=== PATIENT | female | born 1960 | race Caucasian/White ===

== ENCOUNTER 2017-07-02 18:32 | Emergency (ER) | payer MEDICARE, OTHER ==
[~2017-07-02] VITALS: Ht 177.8 cm; Wt 75.0 kg
[2017-07-02 19:11] LABS: BASOPHILS % (AUTO) 0.2 % (0.0-2.0); EOSINOPHILS % (AUTO) 1.1 % (1.0-6.0); HEMATOCRIT 38.2 % (36-46); LYMPHOCYTES # (AUTO) 0.9 K/uL (1.0-4.8); LYMPHOCYTES % (AUTO) 17.4 % (22.0-44.0); MEAN CORPUSCULAR HEMOGLOBIN 32.3 pg (26.0-34.0); MEAN CORPUSCULAR HGB CONC 34.2 G/dL (31.0-37.0); MEAN CORPUSCULAR VOLUME 95 fL (80-100); MONOCYTES # (AUTO) 0.5 K/uL (0.1-1.0); MONOCYTES % (AUTO) 10.2 % (2.0-9.0); NEUTROPHILS # (AUTO) 3.5 K/uL (1.8-7.7); NEUTROPHILS % (AUTO) 71.1 % (40.0-70.0); PLATELET COUNT (AUTO) 127 K/uL (150-450); RED BLOOD CELL COUNT(AUTO) 4.03 MIL/uL (4.00-5.20); RED CELL DISTRIBUTION WIDTH 15.6 % (11.5-14.5); WHITE BLOOD COUNT (AUTO) 4.9 K/uL (4.5-11.0)
[2017-07-02] MEDS ORDERED: HALOPERIDOL 5 MG TABLET PO ONE (20:00)
[2017-07-02] MEDS ORDERED: LORazepam 2 MG TABLET PO ONE (20:00)
[2017-07-02 20:36] VITALS: BP 110/80
[2017-07-02 21:01] LABS: ANION GAP 10 mmol/L (8-16); CALCIUM, TOTAL 8.8 mg/dL (8.8-10.5); CARBON DIOXIDE 26 mmol/L (22-29); CHLORIDE 107 mmol/L (98-107); CREATININE 0.59 mg/dL (0.60-1.30); GLOMERULAR FILTR. RATE CALC > 60 mL/min (>60); POTASSIUM 3.6 mmol/L (3.5-5.1); SODIUM SERUM 143 mmol/L (136-145); UREA NITROGEN, BLOOD 5 mg/dL (7-18)
[2017-07-02 21:07] LABS: ALANINE AMINOTRANSFERASE 264 U/L (12-78); ALBUMIN 3.3 g/dL (3.4-5.0); ASPARTATE AMINOTRANSFERASE 175 U/L (15-37); BILIRUBIN,TOTAL 0.7 mg/dL (0.1-1.0)
[2017-07-05] MEDS ORDERED: BUPR150SR PO (16:36)
[2017-07-05] MEDS ORDERED: RISP2 PO (16:36)
[2017-07-05] MEDS ORDERED: CLON2 PO (16:36)
== END 2017-07-02 23:07 | disposition home or self-care (01) ==
LOC: EMS 18:35
DX: F25.9 Schizoaffective disorder, unspecified (principal); F31.9 Bipolar disorder, unspecified; F41.9 Anxiety disorder, unspecified; F17.210 Nicotine dependence, cigarettes, uncomplicated
CPT/HCPCS: 36415; 80053; 85025; 93005; 99285; 99406; G0480

== ENCOUNTER 2017-10-03 00:54 | Inpatient (IN) | payer MEDICARE, OTHER ==
[~2017-10-03] VITALS: Ht 180.3 cm; Wt 68.5 kg
[~2017-10-03 00:54] MED LIST: ALBU8HFA4 IH; BUPR-93 PO; DSS100 PO; OMEP20 PO; RISP2 PO
[2017-10-03 02:36] LABS: BASOPHILS % (AUTO) 0.3 % (0.0-2.0); EOSINOPHILS % (AUTO) 1.1 % (1.0-6.0); HEMATOCRIT 38.6 % (36-46); HEMOGLOBIN 13.1 g/dL (12.0-16.0); LYMPHOCYTES # (AUTO) 0.8 K/uL (1.0-4.8); LYMPHOCYTES % (AUTO) 21.9 % (22.0-44.0); MEAN CORPUSCULAR HEMOGLOBIN 32.1 pg (26.0-34.0); MEAN CORPUSCULAR VOLUME 94 fL (80-100); MONOCYTES # (AUTO) 0.3 K/uL (0.1-1.0); MONOCYTES % (AUTO) 9.5 % (2.0-9.0); NEUTROPHILS # (AUTO) 2.4 K/uL (1.8-7.7); NEUTROPHILS % (AUTO) 67.2 % (40.0-70.0); PLATELET COUNT (AUTO) 159 K/uL (150-450); RED BLOOD CELL COUNT(AUTO) 4.09 MIL/uL (4.00-5.20); RED CELL DISTRIBUTION WIDTH 14.2 % (11.5-14.5); WHITE BLOOD COUNT (AUTO) 3.6 K/uL (4.5-11.0)
[2017-10-03 02:47] LABS: ANION GAP 3 mmol/L (8-16); CARBON DIOXIDE 30 mmol/L (22-29); CHLORIDE 99 mmol/L (98-107); CREATININE 0.48 mg/dL (0.60-1.30); GLOMERULAR FILTR. RATE CALC > 60 mL/min (>60); SODIUM SERUM 132 mmol/L (136-145); UREA NITROGEN, BLOOD 17 mg/dL (7-18)
[2017-10-03 02:52] LABS: INR 1.2 (0.9-1.1); PROTHROMBIN TIME 12.2 SEC (9.4-11.6)
[2017-10-03 02:53] LABS: ALANINE AMINOTRANSFERASE 111 U/L (12-78); ALBUMIN 2.8 g/dL (3.4-5.0); ASPARTATE AMINOTRANSFERASE 82 U/L (15-37); BILIRUBIN,TOTAL 0.4 mg/dL (0.1-1.0); CREATINE KINASE, TOTAL 49 U/L (26-192); TOTAL PROTEIN, SERUM 6.6 g/dL (6.4-8.2)
[2017-10-03 02:59] LABS: B-TYPE NATRIURETIC PEPTIDE 8 pg/mL (0-100)
[2017-10-03] MEDS ORDERED: OxyCODONE HCL/ACETAMINOPHEN 5-325 MG TABLET PO ONE (05:00)
[2017-10-03] MEDS ORDERED: HEPARIN SODIUM 25000 UNITS/D5W 250 ML IV PRN (05:13)
[2017-10-03] MEDS ORDERED: VANCOMYCIN HCL 1 GM/D5% WATER 200 ML IV ONE ×2 (05:15→13:15)
[2017-10-03] MEDS ORDERED: CEFEPIME HCL 1 GM/VIAL IM ONE (05:15)
[2017-10-03] MEDS ORDERED: HEPARIN SODIUM,PORCINE 5,000 UNITS/ML VIAL IVP PRN ×5 (05:15→23:00)
[2017-10-03] MEDS ORDERED: HEPARIN SODIUM,PORCINE 5,000 UNITS/ML VIAL IVP ONE ×3 (05:15→23:00)
[2017-10-03 05:18] LABS: APPEARANCE,URINE CLOUDY (CLEAR); GLUCOSE, URINE (UA) NEGATIVE (NEGATIVE); KETONES,URINE NEGATIVE (NEGATIVE); LEUKOCYTE ESTERASE ,URINE MODERATE (NEGATIVE); OCCULT BLOOD,URINE TRACE (NEGATIVE); PH,URINE 6.5 (5.0-8.0); PROTEIN,URINE NEGATIVE (NEGATIVE)
[2017-10-03 05:24] LABS: ADD UA MICROSCOPIC YES
[2017-10-03] MEDS ORDERED: ACETAMINOPHEN 325 MG TABLET PO PRN ×2 (05:30→05:45)
[2017-10-03] MEDS ORDERED: ONDANSETRON HCL 4 MG/2 ML VIAL IVP PRN ×2 (05:30→05:45)
[2017-10-03] MEDS ORDERED: 0.9% SODIUM CHLORIDE 10 ML SYRINGE IVP PRN (05:30)
[2017-10-03 05:37] LABS: SQUAMOUS EPITHELIAL CELL,UR Many /LPF (None Seen)
[2017-10-03] MEDS ORDERED: BISACODYL 10 MG RECTAL RECTAL SUPPOSITORY PR PRN (05:45)
[2017-10-03] MEDS ORDERED: MORPHINE SULFATE 4 MG/ML SYRINGE IVP PRN (05:45)
[2017-10-03] MEDS ORDERED: CEFEPIME HCL 1 GM in DEXTROSE 5%-WATER 50 ML IV ONE ×4 (05:45)
[2017-10-03] MEDS ORDERED: IPRATROPIUM BROMIDE 0.5 MG/2.5 ML NEB SOLUTION NEB PRN (05:45)
[2017-10-03] MEDS ORDERED: ZOLPIDEM TARTRATE 5 MG TABLET PO PRN (05:45)
[2017-10-03] MEDS ORDERED: MAGNESIUM HYDROXIDE SUSPENSION 30 ML UDCUP PO PRN (05:45)
[2017-10-03] MEDS ORDERED: ALBUTEROL SULFATE 2.5 MG/0.5 ML NEB SOLUTION NEB PRN (05:45)
[2017-10-03 06:43] VITALS: BP 96/65
[2017-10-03 07:07] VITALS: BP 100/62
[2017-10-03] MEDS: BuPROPion HCL XL 150 MG ER TABLET PO SCH ×2 (08:56→13:05)
[2017-10-03] MEDS: RisperiDONE 2 MG TABLET PO SCH ×2 (08:56→20:04)
[2017-10-03] MEDS: OxyCODONE HCL/ACETAMINOPHEN 5-325 MG TABLET PO PRN ×4 (09:00→21:03)
[2017-10-03 11:26] VITALS: BP 96/58
[2017-10-03] MEDS ORDERED: VANCOMYCIN HCL 500 MG in DEXTROSE 5%-WATER 100 ML IV ONE (11:45)
[2017-10-03] MEDS: DICLOFENAC SODIUM 1% 100 GM GEL [2GM] TP SCH ×2 (13:05→20:06)
[2017-10-03 15:35] VITALS: BP 96/69
[2017-10-03 17:16] VITALS: BP 105/66
[2017-10-03 19:30] VITALS: BP 101/70
[2017-10-03] MEDS ORDERED: VANCOMYCIN HCL 1.5 GM in DEXTROSE 5%-WATER 250 ML IV ONE (22:00)
[2017-10-03 23:41] LABS: BASOPHILS # (AUTO) 0.02 K/uL (0.00-0.20); BASOPHILS % (AUTO) 0.7 % (0.0-2.0); EOSINOPHILS # (AUTO) 0.04 K/uL (0.00-0.70); EOSINOPHILS % (AUTO) 1.35 % (1.0-6.0); HEMATOCRIT 36.8 % (36-46); HEMOGLOBIN 12.3 g/dL (12.0-16.0); LYMPHOCYTES # (AUTO) 0.9 K/uL (1.0-4.8); LYMPHOCYTES % (AUTO) 29.5 % (22.0-44.0); MEAN CORPUSCULAR HEMOGLOBIN 32.5 pg (26.0-34.0); MEAN CORPUSCULAR HGB CONC 33.6 G/dL (31.0-37.0); MEAN CORPUSCULAR VOLUME 97 fL (80-100); MONOCYTES # (AUTO) 0.2 K/uL (0.1-1.0); MONOCYTES % (AUTO) 8.1 % (2.0-9.0); NEUTROPHILS # (AUTO) 1.8 K/uL (1.8-7.7); NEUTROPHILS % (AUTO) 60.3 % (40.0-70.0); PLATELET COUNT (AUTO) 124 K/uL (150-450); RED CELL DISTRIBUTION WIDTH 14.4 % (11.5-14.5); WHITE BLOOD COUNT (AUTO) 2.9 K/uL (4.5-11.0)
[2017-10-03 23:48] LABS: INR 1.2 (0.9-1.1); PROTHROMBIN TIME 12.2 SEC (9.4-11.6)
[2017-10-04] VITALS (7 sets, daily range): BP systolic 96–127; BP diastolic 48–87
[2017-10-04] MEDS: OxyCODONE HCL/ACETAMINOPHEN 5-325 MG TABLET PO PRN ×7 (01:09→21:39)
[2017-10-04] MEDS: HEPARIN SODIUM 25000 UNITS/D5W 250 ML IV PRN ×3 (01:52→11:07)
[2017-10-04] MEDS: HEPARIN SODIUM,PORCINE 5,000 UNITS/ML VIAL IVP PRN ×2 (02:10→11:05)
[2017-10-04] MEDS ORDERED: VANCOMYCIN HCL 1 GM/D5% WATER 200 ML IV SCH ×2 (06:00→07:00)
[2017-10-04 06:36] LABS: BASOPHILS # (AUTO) 0.01 K/uL (0.00-0.20); BASOPHILS % (AUTO) 0.4 % (0.0-2.0); EOSINOPHILS # (AUTO) 0.03 K/uL (0.00-0.70); EOSINOPHILS % (AUTO) 1.25 % (1.0-6.0); HEMATOCRIT 38.7 % (36-46); HEMOGLOBIN 12.9 g/dL (12.0-16.0); LYMPHOCYTES # (AUTO) 0.7 K/uL (1.0-4.8); MEAN CORPUSCULAR HEMOGLOBIN 32.4 pg (26.0-34.0); MEAN CORPUSCULAR HGB CONC 33.3 G/dL (31.0-37.0); MEAN CORPUSCULAR VOLUME 97 fL (80-100); MONOCYTES # (AUTO) 0.2 K/uL (0.1-1.0); MONOCYTES % (AUTO) 6.7 % (2.0-9.0); NEUTROPHILS # (AUTO) 1.8 K/uL (1.8-7.7); NEUTROPHILS % (AUTO) 64.7 % (40.0-70.0); PLATELET COUNT (AUTO) 147 K/uL (150-450); RED BLOOD CELL COUNT(AUTO) 3.97 MIL/uL (4.00-5.20); RED CELL DISTRIBUTION WIDTH 14.3 % (11.5-14.5); WHITE BLOOD COUNT (AUTO) 2.7 K/uL (4.5-11.0)
[2017-10-04 06:56] LABS: ANION GAP 6 mmol/L (8-16); CALCIUM, TOTAL 9.3 mg/dL (8.8-10.5); CARBON DIOXIDE 29 mmol/L (22-29); CHLORIDE 105 mmol/L (98-107); GLOMERULAR FILTR. RATE CALC > 60 mL/min (>60); SODIUM SERUM 140 mmol/L (136-145); UREA NITROGEN, BLOOD 8 mg/dL (7-18)
[2017-10-04] MEDS: DICLOFENAC SODIUM 1% 100 GM GEL [2GM] TP SCH ×2 (07:35→20:03)
[2017-10-04] MEDS: CEFEPIME HCL 1 GM in DEXTROSE 5%-WATER 50 ML IV SCH (07:40)
[2017-10-04] MEDS: RisperiDONE 2 MG TABLET PO SCH ×2 (08:01→20:03)
[2017-10-04] MEDS: BuPROPion HCL XL 150 MG ER TABLET PO SCH ×2 (08:01→12:15)
[2017-10-04] MEDS: VANCOMYCIN HCL 1 GM/D5% WATER 200 ML IV SCH ×2 (09:37→15:04)
[2017-10-04] MEDS: RIVAROXABAN 15 MG TABLET PO SCH (18:08)
[2017-10-05] VITALS (7 sets, daily range): BP systolic 99–132; BP diastolic 66–106
[2017-10-05] MEDS: VANCOMYCIN HCL 1 GM/D5% WATER 200 ML IV SCH ×4 (00:19→23:16)
[2017-10-05] MEDS: OxyCODONE HCL/ACETAMINOPHEN 5-325 MG TABLET PO PRN ×5 (04:34→21:21)
[2017-10-05 06:12] LABS: ANION GAP 9 mmol/L (8-16); CALCIUM, TOTAL 9.3 mg/dL (8.8-10.5); CARBON DIOXIDE 27 mmol/L (22-29); CHLORIDE 105 mmol/L (98-107); CREATININE 0.52 mg/dL (0.60-1.30); GLOMERULAR FILTR. RATE CALC > 60 mL/min (>60); POTASSIUM 3.5 mmol/L (3.5-5.1); SODIUM SERUM 141 mmol/L (136-145); UREA NITROGEN, BLOOD 4 mg/dL (7-18)
[2017-10-05] MEDS: DICLOFENAC SODIUM 1% 100 GM GEL [2GM] TP SCH ×2 (07:34→20:11)
[2017-10-05] MEDS: RIVAROXABAN 15 MG TABLET PO SCH ×2 (07:34→18:04)
[2017-10-05] MEDS: RisperiDONE 2 MG TABLET PO SCH ×2 (07:34→20:11)
[2017-10-05] MEDS: CEFEPIME HCL 1 GM in DEXTROSE 5%-WATER 50 ML IV SCH (07:35)
[2017-10-05] MEDS: BuPROPion HCL XL 150 MG ER TABLET PO SCH ×2 (07:35→12:18)
[2017-10-06] MEDS: OxyCODONE HCL/ACETAMINOPHEN 5-325 MG TABLET PO PRN ×4 (03:16→19:52)
[2017-10-06 04:48] VITALS: BP 116/79
[2017-10-06] MEDS: VANCOMYCIN HCL 1 GM/D5% WATER 200 ML IV SCH ×2 (07:08→15:21)
[2017-10-06 07:41] LABS: ANION GAP 10 mmol/L (8-16); CALCIUM, TOTAL 9.2 mg/dL (8.8-10.5); CARBON DIOXIDE 27 mmol/L (22-29); CHLORIDE 105 mmol/L (98-107); CREATININE 0.48 mg/dL (0.60-1.30); GLOMERULAR FILTR. RATE CALC > 60 mL/min (>60); POTASSIUM 3.6 mmol/L (3.5-5.1); SODIUM SERUM 142 mmol/L (136-145); UREA NITROGEN, BLOOD 6 mg/dL (7-18)
[2017-10-06 07:43] VITALS: BP 102/64
[2017-10-06] MEDS: BuPROPion HCL XL 150 MG ER TABLET PO SCH ×2 (08:46→12:12)
[2017-10-06] MEDS: RisperiDONE 2 MG TABLET PO SCH ×2 (08:46→19:52)
[2017-10-06] MEDS: RIVAROXABAN 15 MG TABLET PO SCH ×2 (08:46→17:58)
[2017-10-06] MEDS ORDERED: SODIUM CHLORIDE 0.9% 100 ML ONE (09:28)
[2017-10-06] MEDS: DICLOFENAC SODIUM 1% 100 GM GEL [2GM] TP SCH ×2 (09:30→19:52)
[2017-10-06] MEDS: CEFEPIME HCL 1 GM in DEXTROSE 5%-WATER 50 ML IV SCH (09:31)
[2017-10-06 11:43] VITALS: BP 138/91
[2017-10-06 15:56] VITALS: BP 113/75
[2017-10-06 19:51] VITALS: BP 135/78
== END 2017-10-06 20:00 | DRG 175 ==
LOC: EMS 00:55 → 5N 05:43
PROVIDERS: ADMIT Internal Medicine; ATTEND Internal Medicine
DX: I26.99 Other pulmonary embolism without acute cor pulmonale (principal); J18.9 Pneumonia, unspecified organism; B18.2 Chronic viral hepatitis C; K21.9 Gastro-esophageal reflux disease without esophagitis; K59.00 Constipation, unspecified; F20.9 Schizophrenia, unspecified; F31.9 Bipolar disorder, unspecified; Y95 Nosocomial condition; F17.200 Nicotine dependence, unspecified, uncomplicated; Z79.01 Long term (current) use of anticoagulants; Z79.899 Other long term (current) drug therapy
CPT/HCPCS: 71275; 85379; 87081; 87086; 93005; 96365; 96368; 99285; J0692; J1644; J3370; J7050; J7060

== ENCOUNTER 2018-01-31 11:31 | Inpatient (IN) | payer MEDICARE, MEDICAID ==
[~2018-01-31] VITALS: Ht 179.1 cm; Wt 74.4 kg
[2018-01-31] MEDS ORDERED: BENZ2TAB10 PO (12:29)
[2018-01-31] MEDS ORDERED: HYDR-4061 PO (12:29)
[2018-01-31] MEDS ORDERED: HALO5 PO (12:29)
[2018-01-31] MEDS ORDERED: GABA-529 PO (12:29)
[2018-01-31] MEDS ORDERED: OLAN5TAB40 PO (12:29)
[2018-01-31] MEDS ORDERED: VENL-67 PO (12:29)
[2018-01-31] MEDS ORDERED: ACET1TAB12 PO (12:29)
[2018-01-31 12:35] LABS: BASOPHILS % (AUTO) 0.2 % (0.0-2.0); EOSINOPHILS % (AUTO) 0.3 % (1.0-6.0); HEMATOCRIT 41.4 % (36-46); HEMOGLOBIN 13.7 g/dL (12.0-16.0); LYMPHOCYTES # (AUTO) 1.1 K/uL (1.0-4.8); LYMPHOCYTES % (AUTO) 17.5 % (22.0-44.0); MEAN CORPUSCULAR HEMOGLOBIN 30.6 pg (26.0-34.0); MEAN CORPUSCULAR HGB CONC 33.2 G/dL (31.0-37.0); MEAN CORPUSCULAR VOLUME 92 fL (80-100); MONOCYTES # (AUTO) 0.5 K/uL (0.1-1.0); NEUTROPHILS # (AUTO) 4.5 K/uL (1.8-7.7); PLATELET COUNT (AUTO) 300 K/uL (150-450); RED BLOOD CELL COUNT(AUTO) 4.49 MIL/uL (4.00-5.20); RED CELL DISTRIBUTION WIDTH 14.8 % (11.5-14.5)
[2018-01-31 12:41] LABS: ANION GAP 8 mmol/L (8-16); CALCIUM, TOTAL 9.5 mg/dL (8.8-10.5); CARBON DIOXIDE 28 mmol/L (22-29); CHLORIDE 104 mmol/L (98-107); CREATININE 0.58 mg/dL (0.60-1.30); GLOMERULAR FILTR. RATE CALC > 60 mL/min (>60); GLUCOSE,RANDOM 96 mg/dL (70-110); POTASSIUM 4.1 mmol/L (3.5-5.1); SODIUM SERUM 140 mmol/L (136-145); UREA NITROGEN, BLOOD 14 mg/dL (7-18)
[2018-01-31 12:47] LABS: ALANINE AMINOTRANSFERASE 30 U/L (12-78); ALBUMIN 3.3 g/dL (3.4-5.0); ALKALINE PHOSPHATASE 246 U/L (46-116); ASPARTATE AMINOTRANSFERASE 26 U/L (15-37); BILIRUBIN,TOTAL 0.3 mg/dL (0.1-1.0); TOTAL PROTEIN, SERUM 7.3 g/dL (6.4-8.2)
[2018-01-31] MEDS ORDERED: ZOLPIDEM TARTRATE 10 MG TABLET PO PRN (13:15)
[2018-01-31] MEDS ORDERED: GABAPENTIN 100 MG CAPSULE PO SCH (16:00)
[2018-01-31] MEDS ORDERED: HALOPERIDOL 5 MG TABLET PO SCH (16:00)
[2018-01-31 17:21] VITALS: BP 129/73
[2018-01-31] MEDS ORDERED: ACETAMINOPHEN 325 MG TABLET PO PRN (18:15)
[2018-01-31 19:50] VITALS: BP 131/72
[2018-01-31] MEDS: IBUPROFEN 800 MG TABLET PO PRN (19:55)
[2018-01-31] MEDS: OLANZapine 10 MG RAPDIS TABLET PO SCH (20:00)
[2018-01-31 20:50] VITALS: BP 122/69
[2018-01-31] MEDS ORDERED: OLANZapine 5 MG RAPDIS TABLET PO SCH (21:00)
[2018-02-01] MEDS: OMEPRAZOLE 20 MG CAPSULE PO SCH (06:45)
[2018-02-01] MEDS: VENLAFAXINE HCL 150 MG ER CAPSULE PO SCH (08:23)
[2018-02-01] MEDS: DOCUSATE SODIUM 100 MG CAPSULE PO SCH (08:24)
[2018-02-01 08:32] VITALS: BP 93/66
[2018-02-01] MEDS ORDERED: BuPROPion HCL XL 150 MG ER TABLET PO SCH (09:00)
[2018-02-01] MEDS ORDERED: VENLAFAXINE HCL 75 MG ER CAPSULE PO SCH (09:00)
[2018-02-01] MEDS ORDERED: BENZTROPINE MESYLATE 2 MG TABLET PO SCH (09:00)
[2018-02-01] MEDS: IBUPROFEN 800 MG TABLET PO PRN ×2 (09:05→20:00)
[2018-02-01 13:14] LABS: APPEARANCE,URINE CLOUDY (CLEAR); BILIRUBIN,URINE NEGATIVE (NEGATIVE); GLUCOSE, URINE (UA) NEGATIVE (NEGATIVE); KETONES,URINE NEGATIVE (NEGATIVE); LEUKOCYTE ESTERASE ,URINE MODERATE (NEGATIVE); NITRATE,URINE NEGATIVE (NEGATIVE); OCCULT BLOOD,URINE NEGATIVE (NEGATIVE); PROTEIN,URINE NEGATIVE (NEGATIVE)
[2018-02-01 13:43] LABS: BACTERIA,URINE Few /HPF (None Seen); RBC,URINE None Seen /HPF (0-2); SQUAMOUS EPITHELIAL CELL,UR Few /LPF (None Seen)
[2018-02-01 16:49] VITALS: BP 142/62
[2018-02-01 20:00] VITALS: BP 139/65
[2018-02-01] MEDS: OLANZapine 10 MG RAPDIS TABLET PO SCH (20:00)
[2018-02-02] MEDS: OMEPRAZOLE 20 MG CAPSULE PO SCH (06:43)
[2018-02-02] MEDS: DOCUSATE SODIUM 100 MG CAPSULE PO SCH (08:10)
[2018-02-02] MEDS: VENLAFAXINE HCL 150 MG ER CAPSULE PO SCH (08:10)
[2018-02-02 08:58] VITALS: BP 111/81
[2018-02-02] MEDS: NITROFURANTOIN/NITROFURAN MAC 100 MG CAPSULE [MACROBID] PO SCH (16:28)
[2018-02-02 17:03] LABS: GLUCOMETER DEV NAME(LOC) 3EI B; GLUCOSE,POINT OF CARE 90 MG/DL (70-110)
[2018-02-02 18:26] VITALS: BP 120/84
[2018-02-02] MEDS: OLANZapine 10 MG RAPDIS TABLET PO SCH (20:10)
[2018-02-03] MEDS: OMEPRAZOLE 20 MG CAPSULE PO SCH (06:47)
[2018-02-03] MEDS: NITROFURANTOIN/NITROFURAN MAC 100 MG CAPSULE [MACROBID] PO SCH ×2 (08:19→16:13)
[2018-02-03] MEDS: DOCUSATE SODIUM 100 MG CAPSULE PO SCH (08:19)
[2018-02-03] MEDS: VENLAFAXINE HCL 150 MG ER CAPSULE PO SCH (08:19)
[2018-02-03 09:00] VITALS: BP 117/68
[2018-02-03] MEDS: LORazepam 2 MG TABLET PO PRN ×2 (11:25→16:13)
[2018-02-03 17:00] VITALS: BP 113/81
[2018-02-03] MEDS: OLANZapine 10 MG RAPDIS TABLET PO SCH (20:09)
[2018-02-04] MEDS: OMEPRAZOLE 20 MG CAPSULE PO SCH (06:49)
[2018-02-04] MEDS: VENLAFAXINE HCL 150 MG ER CAPSULE PO SCH (08:30)
[2018-02-04] MEDS: NITROFURANTOIN/NITROFURAN MAC 100 MG CAPSULE [MACROBID] PO SCH (08:30)
[2018-02-04] MEDS: DOCUSATE SODIUM 100 MG CAPSULE PO SCH (08:30)
[2018-02-04 08:45] VITALS: BP 103/66
[2018-02-04] MEDS: LORazepam 2 MG TABLET PO PRN ×2 (10:22→15:09)
[2018-02-04] MEDS: IBUPROFEN 800 MG TABLET PO PRN (13:01)
[2018-02-04 13:04] VITALS: BP 110/67
[2018-02-04 14:02] VITALS: BP 121/72
[2018-02-04] MEDS ORDERED: HydrOXYzine PAMOATE 25 MG CAPSULE PO PRN (15:00)
[2018-02-04] MEDS: HALOPERIDOL 5 MG TABLET PO PRN (16:43)
[2018-02-04 19:28] VITALS: BP 111/75
[2018-02-04] MEDS: OLANZapine 10 MG RAPDIS TABLET PO SCH (20:25)
[2018-02-05] MEDS: OMEPRAZOLE 20 MG CAPSULE PO SCH (07:06)
[2018-02-05] MEDS: DOCUSATE SODIUM 100 MG CAPSULE PO SCH (08:39)
[2018-02-05] MEDS: VENLAFAXINE HCL 75 MG ER CAPSULE PO SCH (08:40)
[2018-02-05 09:10] VITALS: BP 103/73
[2018-02-05] MEDS: IBUPROFEN 800 MG TABLET PO PRN (09:10)
[2018-02-05] MEDS: LORazepam 2 MG TABLET PO PRN ×2 (09:12→16:07)
[2018-02-05] MEDS: HALOPERIDOL 5 MG TABLET PO PRN (09:12)
[2018-02-05 18:54] VITALS: BP 112/71
[2018-02-05 20:26] LABS: APPEARANCE,URINE CLEAR (CLEAR); BILIRUBIN,URINE NEGATIVE (NEGATIVE); GLUCOSE, URINE (UA) NEGATIVE (NEGATIVE); KETONES,URINE NEGATIVE (NEGATIVE); LEUKOCYTE ESTERASE ,URINE MODERATE (NEGATIVE); NITRATE,URINE NEGATIVE (NEGATIVE); OCCULT BLOOD,URINE NEGATIVE (NEGATIVE); PROTEIN,URINE NEGATIVE (NEGATIVE)
[2018-02-05 20:35] LABS: RBC,URINE None Seen /HPF (0-2)
[2018-02-05 20:36] LABS: BACTERIA,URINE None Seen /HPF (None Seen); SQUAMOUS EPITHELIAL CELL,UR Few /LPF (None Seen); WBC,URINE 51-100 /HPF (0-5)
[2018-02-05] MEDS: OLANZapine 10 MG RAPDIS TABLET PO SCH (21:22)
[2018-02-06 02:45] VITALS: BP 110/77
[2018-02-06] MEDS: OMEPRAZOLE 20 MG CAPSULE PO SCH (06:44)
[2018-02-06 08:26] VITALS: BP 109/78
[2018-02-06] MEDS: HALOPERIDOL 5 MG TABLET PO PRN (08:26)
[2018-02-06] MEDS: VENLAFAXINE HCL 75 MG ER CAPSULE PO SCH (08:26)
[2018-02-06] MEDS: DOCUSATE SODIUM 100 MG CAPSULE PO SCH (08:26)
[2018-02-06] MEDS: LORazepam 2 MG TABLET PO PRN ×2 (08:26→15:44)
[2018-02-06] MEDS: PHENAZOPYRIDINE HCL 100 MG TABLET PO SCH ×2 (08:26→16:28)
[2018-02-06] MEDS: IBUPROFEN 800 MG TABLET PO PRN ×2 (08:27→15:42)
[2018-02-06 15:42] VITALS: BP 108/75
[2018-02-06 16:42] VITALS: BP 90/57
[2018-02-06] MEDS: OLANZapine 10 MG RAPDIS TABLET PO SCH (20:17)
[2018-02-07 01:00] VITALS: BP 105/73
[2018-02-07] MEDS: IBUPROFEN 800 MG TABLET PO PRN ×4 (01:02→19:05)
[2018-02-07] MEDS: OMEPRAZOLE 20 MG CAPSULE PO SCH (06:37)
[2018-02-07] MEDS: VENLAFAXINE HCL 75 MG ER CAPSULE PO SCH (08:16)
[2018-02-07] MEDS: DOCUSATE SODIUM 100 MG CAPSULE PO SCH (08:16)
[2018-02-07] MEDS: PHENAZOPYRIDINE HCL 100 MG TABLET PO SCH ×2 (08:17→16:16)
[2018-02-07] MEDS: LORazepam 2 MG TABLET PO PRN ×2 (08:21→21:11)
[2018-02-07 09:46] VITALS: BP 114/80
[2018-02-07] MEDS: HALOPERIDOL 5 MG TABLET PO PRN (12:41)
[2018-02-07 12:47] VITALS: BP 109/65
[2018-02-07] MEDS ORDERED: METHYL SALICYLATE/MENTHOL 120 GM CREAM TP PRN (13:30)
[2018-02-07] MEDS: NICOTINE 14 MG/24 HOUR PATCH TD SCH (14:23)
[2018-02-07 14:26] VITALS: BP 111/72
[2018-02-07 16:10] VITALS: BP 106/60
[2018-02-07] MEDS: OLANZapine 10 MG RAPDIS TABLET PO SCH (21:11)
[2018-02-08] VITALS (7 sets, daily range): BP systolic 99–107; BP diastolic 40–77
[2018-02-08] MEDS: IBUPROFEN 800 MG TABLET PO PRN ×3 (01:54→17:17)
[2018-02-08] MEDS: OMEPRAZOLE 20 MG CAPSULE PO SCH (06:57)
[2018-02-08] MEDS: DOCUSATE SODIUM 100 MG CAPSULE PO SCH (08:38)
[2018-02-08] MEDS: PHENAZOPYRIDINE HCL 100 MG TABLET PO SCH ×2 (08:38→17:16)
[2018-02-08] MEDS: VENLAFAXINE HCL 75 MG ER CAPSULE PO SCH (08:39)
[2018-02-08] MEDS: NICOTINE 14 MG/24 HOUR PATCH TD SCH (08:39)
[2018-02-08] MEDS: LORazepam 2 MG TABLET PO PRN (10:16)
[2018-02-08] MEDS: OLANZapine 10 MG RAPDIS TABLET PO SCH (20:47)
[2018-02-09] MEDS: OMEPRAZOLE 20 MG CAPSULE PO SCH (07:04)
[2018-02-09] MEDS: DOCUSATE SODIUM 100 MG CAPSULE PO SCH (08:15)
[2018-02-09] MEDS: VENLAFAXINE HCL 75 MG ER CAPSULE PO SCH (08:15)
[2018-02-09] MEDS: NICOTINE 14 MG/24 HOUR PATCH TD SCH (08:20)
[2018-02-09 09:28] VITALS: BP 99/71
[2018-02-09] MEDS: HALOPERIDOL 5 MG TABLET PO PRN (10:50)
[2018-02-09] MEDS: IBUPROFEN 800 MG TABLET PO PRN ×2 (10:50→18:34)
[2018-02-09] MEDS: LORazepam 2 MG TABLET PO PRN ×2 (10:50→16:07)
[2018-02-09 10:57] VITALS: BP 105/76
[2018-02-09 18:35] VITALS: BP 105/67
[2018-02-09] MEDS: OLANZapine 10 MG RAPDIS TABLET PO SCH (20:24)
[2018-02-10] MEDS: OMEPRAZOLE 20 MG CAPSULE PO SCH (06:56)
[2018-02-10] MEDS: IBUPROFEN 800 MG TABLET PO PRN ×2 (07:43→14:03)
[2018-02-10] MEDS: LORazepam 2 MG TABLET PO PRN ×2 (08:01→16:06)
[2018-02-10] MEDS: NICOTINE 14 MG/24 HOUR PATCH TD SCH (08:01)
[2018-02-10] MEDS: DOCUSATE SODIUM 100 MG CAPSULE PO SCH (08:01)
[2018-02-10] MEDS: VENLAFAXINE HCL 75 MG ER CAPSULE PO SCH (08:01)
[2018-02-10 08:50] VITALS: BP 127/86
[2018-02-10] MEDS: HALOPERIDOL 5 MG TABLET PO PRN ×2 (14:03→18:37)
[2018-02-10 17:06] VITALS: BP 102/59
[2018-02-10] MEDS: OLANZapine 10 MG RAPDIS TABLET PO SCH (21:03)
[2018-02-11 01:09] VITALS: BP 112/76
[2018-02-11] MEDS: IBUPROFEN 800 MG TABLET PO PRN ×3 (02:35→15:55)
[2018-02-11] MEDS: OMEPRAZOLE 20 MG CAPSULE PO SCH (06:40)
[2018-02-11] MEDS: NICOTINE 14 MG/24 HOUR PATCH TD SCH (08:59)
[2018-02-11] MEDS: DOCUSATE SODIUM 100 MG CAPSULE PO SCH (08:59)
[2018-02-11] MEDS: VENLAFAXINE HCL 75 MG ER CAPSULE PO SCH (09:00)
[2018-02-11 09:04] VITALS: BP 101/68
[2018-02-11] MEDS: HALOPERIDOL 5 MG TABLET PO PRN (09:51)
[2018-02-11 10:02] VITALS: BP 121/78
[2018-02-11] MEDS: LORazepam 2 MG TABLET PO PRN (14:11)
[2018-02-11 16:00] VITALS: BP 135/68
[2018-02-11 17:00] VITALS: BP 140/85
[2018-02-11] MEDS: OLANZapine 10 MG RAPDIS TABLET PO SCH (20:23)
[2018-02-12] MEDS: OMEPRAZOLE 20 MG CAPSULE PO SCH (06:43)
[2018-02-12 08:00] VITALS: BP 113/76
[2018-02-12] MEDS: VENLAFAXINE HCL 75 MG ER CAPSULE PO SCH (08:08)
[2018-02-12] MEDS: DOCUSATE SODIUM 100 MG CAPSULE PO SCH (08:08)
[2018-02-12] MEDS: NICOTINE 14 MG/24 HOUR PATCH TD SCH (08:09)
[2018-02-12 08:15] VITALS: BP 118/72
[2018-02-12] MEDS: IBUPROFEN 800 MG TABLET PO PRN (08:15)
== END 2018-02-12 17:00 | disposition home or self-care (01) | DRG 885 ==
LOC: EMS 11:32 → 3EX 16:13
PROVIDERS: ADMIT Psychiatry & Neurology Psychiatry; ATTEND Psychiatry & Neurology Psychiatry
DX: F25.0 Schizoaffective disorder, bipolar type (principal); R45.851 Suicidal ideations; Z91.19 Patient's noncompliance with other medical treatment and regimen; N39.0 Urinary tract infection, site not specified; B18.2 Chronic viral hepatitis C; F19.10 Other psychoactive substance abuse, uncomplicated; Z63.9 Problem related to primary support group, unspecified; J44.9 Chronic obstructive pulmonary disease, unspecified; F41.9 Anxiety disorder, unspecified; F12.90 Cannabis use, unspecified, uncomplicated; F15.10 Other stimulant abuse, uncomplicated; G47.00 Insomnia, unspecified; G47.10 Hypersomnia, unspecified; G89.29 Other chronic pain; I10 Essential (primary) hypertension; Z91.5 Personal history of self-harm; Z96.649 Presence of unspecified artificial hip joint; F17.200 Nicotine dependence, unspecified, uncomplicated; M25.559 Pain in unspecified hip; M54.5 Low back pain; R26.81 Unsteadiness on feet; Z71.51 Drug abuse counseling and surveillance of drug abuser; Z71.6 Tobacco abuse counseling; Z79.899 Other long term (current) drug therapy
CPT/HCPCS: 82962; 86592; 87086; 87491; 87591; 99285; G0480

== ENCOUNTER 2019-03-30 18:11 | Emergency (ER) | payer MEDICARE, MEDICAID ==
[~2019-03-30] VITALS: Ht 180.3 cm; Wt 64.5 kg
[~2019-03-30 18:11] MED LIST changes: -ALBU8HFA4 IH; -BUPR-93 PO; +OLAN5TAB40 PO; -RISP2 PO; +VENL-67 PO
[2019-03-30 18:37] VITALS: BP 101/76
[2019-03-30] MEDS ORDERED: ACETAMINOPHEN 325 MG TABLET PO ONE (19:15)
== END 2019-03-30 20:09 | disposition left against medical advice (07) ==
LOC: EMS 18:11
DX: M79.609 Pain in unspecified limb (principal); F32.9 Major depressive disorder, single episode, unspecified; I10 Essential (primary) hypertension; F20.9 Schizophrenia, unspecified; F17.210 Nicotine dependence, cigarettes, uncomplicated

== ENCOUNTER 2019-11-12 20:48 | Inpatient (IN) | payer MEDICARE ==
[~2019-11-12] VITALS: Ht 180.3 cm; Wt 63.3 kg
[2019-11-13] MEDS ORDERED: GABA-529 PO (08:59)
[2019-11-13] MEDS ORDERED: BENZ2TAB10 PO (08:59)
[2019-11-13] MEDS ORDERED: BUPR-93 PO (08:59)
[2019-11-13] MEDS ORDERED: HALO5TAB2 PO (08:59)
[2019-11-13] MEDS ORDERED: HALOPERIDOL 5 MG TABLET PO PRN (09:00)
[2019-11-13] MEDS ORDERED: LITH300C3 PO (09:01)
[2019-11-13] MEDS ORDERED: HALO10 PO (09:01)
[2019-11-13] MEDS ORDERED: OXYC-530 PO (09:02)
[2019-11-13] MEDS ORDERED: TRAZ-257 PO (09:04)
[2019-11-13] MEDS ORDERED: GABA-531 PO (09:04)
[2019-11-13 09:14] VITALS: BP 101/73
[2019-11-13] MEDS ORDERED: INFLUENZA VIRUS VACCINE QVS 2019-20 (3YR+)/PF 60 MCG/0.5 ML SYRINGE IM ONE (11:00)
[2019-11-13] MEDS: LORazepam 2 MG TABLET PO PRN ×2 (11:08→15:11)
[2019-11-13 12:03] VITALS: BP 101/65
[2019-11-13 16:22] VITALS: BP 100/68
[2019-11-13] MEDS: NICOTINE 14 MG/24 HOUR PATCH TD PRN (19:04)
[2019-11-13] MEDS: ACETAMINOPHEN 325 MG TABLET PO PRN (22:05)
[2019-11-14] MEDS: ZOLPIDEM TARTRATE 10 MG TABLET PO PRN (01:42)
[2019-11-14 02:00] VITALS: BP 115/70
[2019-11-14] MEDS: LORazepam 2 MG TABLET PO PRN ×3 (07:14→17:30)
[2019-11-14 08:01] LABS: BASOPHILS % (AUTO) 0.4 % (0.0-2.0); EOSINOPHILS % (AUTO) 0.7 % (1.0-6.0); HEMATOCRIT 39.6 % (36-46); LYMPHOCYTES # (AUTO) 1.4 K/uL (1.0-4.8); LYMPHOCYTES % (AUTO) 20.3 % (22.0-44.0); MEAN CORPUSCULAR HEMOGLOBIN 28.6 pg (26.0-34.0); MEAN CORPUSCULAR HGB CONC 32.8 G/dL (31.0-37.0); MEAN CORPUSCULAR VOLUME 87 fL (80-100); MONOCYTES # (AUTO) 0.5 K/uL (0.1-1.0); NEUTROPHILS # (AUTO) 4.8 K/uL (1.8-7.7); NEUTROPHILS % (AUTO) 71.6 % (40.0-70.0); PLATELET COUNT (AUTO) 319 K/uL (150-450); RED BLOOD CELL COUNT(AUTO) 4.55 MIL/uL (4.00-5.20); RED CELL DISTRIBUTION WIDTH 17.3 % (11.5-14.5)
[2019-11-14 08:21] VITALS: BP 103/64
[2019-11-14 08:33] LABS: LITHIUM < 0.20 mmol/L (0.60-1.20)
[2019-11-14 08:39] LABS: ALANINE AMINOTRANSFERASE 90 U/L (12-78); ALBUMIN 3.1 g/dL (3.4-5.0); ALKALINE PHOSPHATASE 151 U/L (46-116); ANION GAP 8 mmol/L (8-16); ASPARTATE AMINOTRANSFERASE 58 U/L (15-37); BILIRUBIN,TOTAL 0.4 mg/dL (0.1-1.0); CALCIUM, TOTAL 9.5 mg/dL (8.8-10.5); CARBON DIOXIDE 27 mmol/L (22-29); CHLORIDE 104 mmol/L (98-107); CHOL/HDL RATIO 2.9 (3.9-5.7); CHOLESTEROL 189 mg/dL (131-200); CREATININE 0.57 mg/dL (0.60-1.30); FREE T4 (FREE THYROXINE) 1.16 ng/dL (0.76-1.46); GLOMERULAR FILTR. RATE CALC > 60 mL/min (>60); GLUCOSE,RANDOM 86 mg/dL (70-110); HDL CHOLESTEROL 66 mg/dL (40-60); LDL CHOL (CALC.) 111 mg/dL (0-130); POTASSIUM 4.1 mmol/L (3.5-5.1); SODIUM SERUM 139 mmol/L (136-145); TOTAL PROTEIN, SERUM 7.4 g/dL (6.4-8.2); TRIGLYCERIDES 62 mg/dL (15-150); UREA NITROGEN, BLOOD 20 mg/dL (7-18)
[2019-11-14 08:41] LABS: HEMOGLOBIN A1C 5.1 % (4.5-6.2)
[2019-11-14 11:15] VITALS: BP 112/65
[2019-11-14] MEDS: IBUPROFEN 600 MG TABLET PO PRN (11:22)
[2019-11-14] MEDS: NICOTINE 14 MG/24 HOUR PATCH TD PRN (12:53)
[2019-11-14] MEDS: BuPROPion HCL 150 MG SR TABLET PO SCH (12:57)
[2019-11-14] MEDS: GABAPENTIN 300 MG CAPSULE PO SCH ×2 (12:59→17:21)
[2019-11-14] MEDS: LITHIUM CARBONATE 300 MG CAPSULE PO SCH (17:19)
[2019-11-14 17:20] VITALS: BP 118/80
[2019-11-14] MEDS: BENZTROPINE MESYLATE 0.5 MG TABLET PO SCH (17:21)
[2019-11-14] MEDS: OLANZapine 10 MG TABLET PO SCH (21:05)
[2019-11-14] MEDS: TraZODone HCL 100 MG TABLET PO SCH (21:05)
[2019-11-15 00:47] VITALS: BP 110/83
[2019-11-15] MEDS: IBUPROFEN 600 MG TABLET PO PRN (04:50)
[2019-11-15 04:51] VITALS: BP 115/82
[2019-11-15] MEDS: LORazepam 2 MG TABLET PO PRN ×3 (05:56→21:02)
[2019-11-15 09:04] VITALS: BP 109/73
[2019-11-15] MEDS: BENZTROPINE MESYLATE 0.5 MG TABLET PO SCH ×2 (09:15→16:13)
[2019-11-15] MEDS: GABAPENTIN 300 MG CAPSULE PO SCH ×3 (09:15→16:13)
[2019-11-15] MEDS: BuPROPion HCL 150 MG SR TABLET PO SCH (09:15)
[2019-11-15] MEDS: LITHIUM CARBONATE 300 MG CAPSULE PO SCH ×2 (09:15→16:13)
[2019-11-15] MEDS: NICOTINE 14 MG/24 HOUR PATCH TD PRN (09:19)
[2019-11-15 16:14] VITALS: BP 109/70
[2019-11-15] MEDS: OLANZapine 10 MG TABLET PO SCH (20:25)
[2019-11-15] MEDS: TraZODone HCL 100 MG TABLET PO SCH (20:25)
[2019-11-16 00:14] VITALS: BP 112/73
[2019-11-16 08:23] VITALS: BP 114/72
[2019-11-16] MEDS: BuPROPion HCL 150 MG SR TABLET PO SCH (09:00)
[2019-11-16] MEDS: BENZTROPINE MESYLATE 0.5 MG TABLET PO SCH ×2 (09:00→16:53)
[2019-11-16] MEDS: GABAPENTIN 300 MG CAPSULE PO SCH ×3 (09:00→16:53)
[2019-11-16] MEDS: LITHIUM CARBONATE 300 MG CAPSULE PO SCH ×2 (09:00→16:53)
[2019-11-16] MEDS: NICOTINE 14 MG/24 HOUR PATCH TD PRN (10:35)
[2019-11-16] MEDS: LORazepam 2 MG TABLET PO PRN (10:35)
[2019-11-16] MEDS: IBUPROFEN 600 MG TABLET PO PRN (12:30)
[2019-11-16 16:15] VITALS: BP 117/81
[2019-11-16] MEDS: OLANZapine 10 MG TABLET PO SCH (19:29)
[2019-11-16] MEDS: TraZODone HCL 100 MG TABLET PO SCH (19:29)
[2019-11-17 00:31] VITALS: BP 110/64
[2019-11-17] MEDS: LORazepam 2 MG TABLET PO PRN ×2 (03:03→18:28)
[2019-11-17] MEDS: IBUPROFEN 600 MG TABLET PO PRN ×2 (05:02→18:28)
[2019-11-17 08:58] VITALS: BP 92/55
[2019-11-17] MEDS: GABAPENTIN 300 MG CAPSULE PO SCH ×3 (09:44→16:02)
[2019-11-17] MEDS: LITHIUM CARBONATE 300 MG CAPSULE PO SCH ×2 (09:44→16:03)
[2019-11-17] MEDS: BENZTROPINE MESYLATE 0.5 MG TABLET PO SCH ×2 (10:11→16:02)
[2019-11-17] MEDS: BuPROPion HCL 150 MG SR TABLET PO SCH (10:12)
[2019-11-17 16:33] VITALS: BP 104/64
[2019-11-17 18:19] VITALS: BP 120/86
[2019-11-17] MEDS: TraZODone HCL 100 MG TABLET PO SCH (20:49)
[2019-11-17] MEDS: OLANZapine 10 MG TABLET PO SCH (20:50)
[2019-11-18] VITALS (11 sets, daily range): BP systolic 97–112; BP diastolic 62–84
[2019-11-18] MEDS: IBUPROFEN 600 MG TABLET PO PRN ×2 (00:34→19:43)
[2019-11-18] MEDS: GABAPENTIN 300 MG CAPSULE PO SCH ×3 (09:42→17:12)
[2019-11-18] MEDS: LITHIUM CARBONATE 300 MG CAPSULE PO SCH ×2 (09:42→17:11)
[2019-11-18] MEDS: BENZTROPINE MESYLATE 0.5 MG TABLET PO SCH ×2 (09:42→17:12)
[2019-11-18] MEDS: BuPROPion HCL 150 MG SR TABLET PO SCH (09:42)
[2019-11-18] MEDS: TraZODone HCL 100 MG TABLET PO SCH (21:43)
[2019-11-18] MEDS: OLANZapine 10 MG TABLET PO SCH (21:44)
[2019-11-19 02:00] VITALS: BP 94/67
[2019-11-19 03:50] VITALS: BP 94/67
[2019-11-19] MEDS: IBUPROFEN 600 MG TABLET PO PRN ×2 (05:00→22:44)
[2019-11-19 08:25] VITALS: BP 101/65
[2019-11-19] MEDS: GABAPENTIN 300 MG CAPSULE PO SCH ×3 (08:26→20:28)
[2019-11-19] MEDS: BENZTROPINE MESYLATE 0.5 MG TABLET PO SCH ×2 (08:26→16:45)
[2019-11-19] MEDS: LITHIUM CARBONATE 300 MG CAPSULE PO SCH ×2 (08:26→16:45)
[2019-11-19] MEDS: BuPROPion HCL 150 MG SR TABLET PO SCH (08:26)
[2019-11-19] MEDS ORDERED: BISACODYL 5 MG EC TABLET PO PRN (10:45)
[2019-11-19] MEDS: DOCUSATE SODIUM 100 MG CAPSULE PO SCH ×2 (12:36→16:45)
[2019-11-19 16:30] VITALS: BP 111/78
[2019-11-19] MEDS: TraZODone HCL 100 MG TABLET PO SCH (20:28)
[2019-11-19] MEDS: OLANZapine 10 MG TABLET PO SCH (20:28)
[2019-11-19 22:44] VITALS: BP 109/61
[2019-11-20 01:36] VITALS: BP 145/80
[2019-11-20] MEDS: ACETAMINOPHEN 325 MG TABLET PO PRN ×2 (01:36→19:26)
[2019-11-20 08:30] VITALS: BP 102/63
[2019-11-20] MEDS: DOCUSATE SODIUM 100 MG CAPSULE PO SCH ×2 (08:48→17:37)
[2019-11-20] MEDS: IBUPROFEN 600 MG TABLET PO PRN (08:48)
[2019-11-20] MEDS: BENZTROPINE MESYLATE 0.5 MG TABLET PO SCH ×2 (08:48→17:38)
[2019-11-20] MEDS: LITHIUM CARBONATE 300 MG CAPSULE PO SCH ×2 (08:48→17:40)
[2019-11-20] MEDS: BuPROPion HCL 150 MG SR TABLET PO SCH (08:48)
[2019-11-20] MEDS: GABAPENTIN 300 MG CAPSULE PO SCH ×3 (08:48→20:55)
[2019-11-20 09:32] VITALS: BP 102/63
[2019-11-20] MEDS ORDERED: LACTULOSE 20 GM/30 ML SOLUTION UDCUP PO PRN (12:30)
[2019-11-20] MEDS: NICOTINE 14 MG/24 HOUR PATCH TD PRN (13:08)
[2019-11-20 17:45] VITALS: BP 104/67
[2019-11-20] MEDS: TraZODone HCL 100 MG TABLET PO SCH (20:55)
[2019-11-20] MEDS: OLANZapine 10 MG TABLET PO SCH (20:56)
[2019-11-21 00:39] VITALS: BP 106/64
[2019-11-21 00:48] VITALS: BP 106/64
[2019-11-21] MEDS: ZOLPIDEM TARTRATE 10 MG TABLET PO PRN (03:03)
[2019-11-21 08:32] VITALS: BP 101/63
[2019-11-21] MEDS ORDERED: BuPROPion HCL XL 150 MG ER TABLET PO SCH (09:00)
[2019-11-21] MEDS: GABAPENTIN 300 MG CAPSULE PO SCH ×2 (09:12→16:37)
[2019-11-21] MEDS: LITHIUM CARBONATE 300 MG CAPSULE PO SCH ×2 (09:13→16:37)
[2019-11-21] MEDS: BENZTROPINE MESYLATE 0.5 MG TABLET PO SCH ×2 (09:13→16:37)
[2019-11-21] MEDS: DOCUSATE SODIUM 100 MG CAPSULE PO SCH ×2 (09:13→16:37)
[2019-11-21 09:51] VITALS: BP 109/66
[2019-11-21] MEDS: ACETAMINOPHEN 325 MG TABLET PO PRN (09:51)
[2019-11-21] MEDS ORDERED: OLAN10TA3 PO (14:56)
[2019-11-21] MEDS ORDERED: GABA600T PO (14:56)
[2019-11-21] MEDS ORDERED: BUPR-93 PO (14:56)
[2019-11-21] MEDS ORDERED: BENZ0.5T44 PO (14:56)
[2019-11-21] MEDS ORDERED: GABA300C PO (14:56)
[2019-11-21] MEDS ORDERED: DOCU-275 PO (14:58)
[2019-11-21 16:10] VITALS: BP 108/71
== END 2019-11-21 17:55 | disposition home or self-care (01) | DRG 885 ==
LOC: B2X 11-13 09:17
PROVIDERS: ADMIT Psychiatry & Neurology Psychiatry; ATTEND Psychiatry & Neurology Psychiatry
DX: F25.9 Schizoaffective disorder, unspecified (principal); B19.20 Unspecified viral hepatitis C without hepatic coma; F11.20 Opioid dependence, uncomplicated; E46 Unspecified protein-calorie malnutrition; Z68.1 Body mass index [BMI] 19.9 or less, adult; R45.851 Suicidal ideations; F22 Delusional disorders; M16.12 Unilateral primary osteoarthritis, left hip; F12.90 Cannabis use, unspecified, uncomplicated; F19.90 Other psychoactive substance use, unspecified, uncomplicated; J44.9 Chronic obstructive pulmonary disease, unspecified; R79.89 Other specified abnormal findings of blood chemistry; E88.09 Other disorders of plasma-protein metabolism, not elsewhere classified; R26.9 Unspecified abnormalities of gait and mobility; F32.9 Major depressive disorder, single episode, unspecified; Z72.0 Tobacco use; Z91.5 Personal history of self-harm; Z87.81 Personal history of (healed) traumatic fracture; Z23 Encounter for immunization
CPT/HCPCS: 83036; 84439; 90686

== ENCOUNTER 2019-11-18 03:44 | Emergency (ER) | payer MEDICARE ==
[~2019-11-18] VITALS: Ht 180.3 cm; Wt 60.0 kg
[~2019-11-18 03:44] MED LIST changes: -DSS100 PO; +GABA-531 PO; +HALO10 PO; +LITH300C3 PO; -OLAN5TAB40 PO; -OMEP20 PO; +OXYC-530 PO; +TRAZ-257 PO; -VENL-67 PO
[2019-11-18] MEDS ORDERED: ACETAMINOPHEN 500 MG TABLET PO ONE (04:30)
[2019-11-18 04:35] VITALS: BP 91/62
== END 2019-11-18 07:33 | disposition home or self-care (01) ==
LOC: EMS 03:44
DX: M25.552 Pain in left hip (principal); G89.29 Other chronic pain; F31.9 Bipolar disorder, unspecified; I10 Essential (primary) hypertension; F20.9 Schizophrenia, unspecified; F17.210 Nicotine dependence, cigarettes, uncomplicated; W19.XXXA Unspecified fall, initial encounter; Y93.89 Activity, other specified; Y92.89 Other specified places as the place of occurrence of the external cause; Y99.8 Other external cause status
CPT/HCPCS: 73503; 73552; 99406